=== PATIENT | male | born 1990 | race Caucasian/White ===

== ENCOUNTER 2022-04-29 05:34 | Inpatient (IN) | payer MEDICAID ==
[~2022-04-29] VITALS: Ht 180.3 cm; Wt 88.5 kg
[2022-04-29] MEDS ORDERED: METHYLPREDNISOLONE SOD SUCC 125 MG/2 ML VIAL IV STA (06:23)
[2022-04-29] MEDS ORDERED: ALBUTEROL 6.7GM HFA INHALER ORI ONE (06:30)
[2022-04-29] MEDS ORDERED: IBUPROFEN 800MG TABLET PO ONE (06:30)
[2022-04-29 06:33] LABS: BASOPHILS % 0.3 % (0.0-2.0); HEMATOCRIT. 36.4 % (42.0-52.0); LYMPHOCYTES % 7.8 % (20.0-50.0); MEAN CORPUSCULAR HEMOGLOBIN 30.5 pg (28.0-32.0); MEAN CORPUSCULAR VOLUME 92.8 fL (80.0-94.0); MEAN PLATELET VOLUME 10.3 fl (7.4-10.4); NEUTROPHILS % 83.9 % (40.0-76.0); PLATELET 417 x1000/uL (130-400); RED BLOOD CELL COUNT 3.92 mill/uL (4.7-6.1); RED CELL DISTRIBUTION WIDTH 14.1 % (11.6-14.6)
[2022-04-29 06:43] LABS: CHLORIDE 114 mEq/L (98-107); INR 1.1; PROTHROMBIN TIME 11.9 sec (9.6-11.0)
[2022-04-29] MEDS ORDERED: AZITHROMYCIN 500MG/250ML 250 ML IV NR (07:00)
[2022-04-29] MEDS ORDERED: CEFTRIAXONE 1 G PREMIX 50 ML IV NR (07:00)
[2022-04-29] MEDS ORDERED: DEXAMETHASONE 4MG/ML 1ML VIAL IV SCH (09:00)
[2022-04-29] MEDS ORDERED: ALBUTEROL 6.7GM HFA INHALER ORI PRN (09:00)
[2022-04-29] MEDS ORDERED: POTASSIUM CHLORIDE 20MEQ TABLET SR PO NR (10:00)
[2022-04-29] MEDS ORDERED: ASPIRIN 81MG TABLET PO SCH (10:00)
[2022-04-29] MEDS ORDERED: IPRATROPIUM/ALBUTEROL 0.5-3(2.5)MG/3ML NEB HHN PRN ×2 (11:00→13:00)
[2022-04-29 12:25] VITALS: BP 126/70
[2022-04-29] MEDS ORDERED: CLONIDINE 0.1MG TABLET PO PRN (13:00)
[2022-04-29] MEDS ORDERED: ONDANSETRON HCL 4MG/2ML INJ IV PRN (13:00)
[2022-04-29] MEDS ORDERED: DIPHENHYDRAMINE 50MG/ML VIAL IV PRN (13:00)
[2022-04-29] MEDS ORDERED: GUAIFENESIN 200MG/10ML SUGAR FREE UDC PO PRN (13:00)
[2022-04-29] MEDS ORDERED: ACETAMINOPHEN 325MG TABLET PO PRN ×2 (13:00)
[2022-04-29] MEDS ORDERED: ZOLPIDEM TARTRATE 5MG TABLET PO PRN (13:00)
[2022-04-29] MEDS ORDERED: KETOROLAC 30MG/ML VIAL IV PRN (13:45)
[2022-04-29] MEDS ORDERED: SODIUM CHLORIDE 0.9% INJ 3ML FLUSH IVF SCH (14:00)
[2022-04-29] MEDS ORDERED: IPRATROPIUM/ALBUTEROL 0.5-3(2.5)MG/3ML NEB HHN SCH (14:00)
[2022-04-29] MEDS ORDERED: ENOXAPARIN 40MG/0.4ML SYR SUBCUT SCH (14:00)
[2022-04-29] MEDS ORDERED: ESCI20TA PO (14:38)
[2022-04-29] MEDS ORDERED: AMPH20TA3 PO (14:38)
[2022-04-29] MEDS ORDERED: ALBU90AE IH (14:38)
[2022-04-29] MEDS ORDERED: GABA-290 PO (14:42)
[2022-04-29] MEDS ORDERED: *PATIENT'S OWN MEDICATION STORAGE XX SCH (15:00)
[2022-04-29 16:00] VITALS: BP 125/56
[2022-04-29 16:04] LABS: CREATINE KINASE 397 IU/L (39-308)
[2022-04-29] MEDS ORDERED: GABAPENTIN 300MG CAPSULE PO SCH (17:00)
[2022-04-29] MEDS ORDERED: DOXYCYCLINE HYCLATE 100MG CAPSULE PO SCH (17:00)
[2022-04-30] MEDS ORDERED: AZITHROMYCIN 500MG/250ML 250 ML IV SCH (09:00)
[2022-04-30] MEDS ORDERED: CEFTRIAXONE 1,000 MG in DEXTROSE 5% WATER 50 ML IV SCH (11:00)
== END 2022-04-29 16:26 | disposition left against medical advice (07) | DRG 720 ==
LOC: ER 05:34 → 8WST 08:25 → EDBEDREQ 08:28 → EDBEDREQTM 08:28 → ENRESERV 11:25
PROVIDERS: ADMIT Internal Medicine; ATTEND Internal Medicine
DX: A41.9 Sepsis, unspecified organism (principal); J96.00 Acute respiratory failure, unspecified whether with hypoxia or hypercapnia; E87.0 Hyperosmolality and hypernatremia; J18.9 Pneumonia, unspecified organism; M62.82 Rhabdomyolysis; Z20.822 Contact with and (suspected) exposure to COVID-19; Z53.29 Procedure and treatment not carried out because of patient's decision for other reasons; F12.90 Cannabis use, unspecified, uncomplicated; F17.200 Nicotine dependence, unspecified, uncomplicated
CPT/HCPCS: 36415; 71045; 80053; 82550; 82728; 83605; 83880; 84145; 84484; 85025; 86140; 87426; 87804; 93005; 93306; 99291; C9803; J0456; J0696; J1100; J1650; J1885; J2930; J7060